=== PATIENT | male | born 1995 | race Caucasian/White ===

== ENCOUNTER 2023-07-02 11:53 | Outpatient (OUT) | payer BC, SELFPAY ==
[2023-07-02 12:32] LABS: Basophils Percent Auto 0.4 % (0.2-2.0); Eosinophils Absolute Auto 0.1 10^3/uL (0.0-0.7); Eosinophils Percent Auto 1.4 % (0.9-7.0); Hematocrit 46.2 % (42.0-54.0); Hemoglobin 15.5 g/dL (14.0-18.0); Immature Granulocytes Abs Auto 0.01 10^3/uL (0.00-0.03); Immature Granulocytes Pct Auto 0.2 % (0.0-0.5); Lymphocytes Absolute Auto 1.8 10^3/uL (1.2-3.8); Lymphocytes Percent Auto 37.1 % (20.5-60.0); Mean Corpuscular HGB Conc 33.5 g/dL (29.9-35.2); Mean Corpuscular Hemoglobin 30.8 pg (25.9-34.0); Mean Corpuscular Volume 91.8 fL (80.0-94.0); Mean Platelet Volume 10.7 fL (9.5-13.5); Monocytes Absolute Auto 0.6 10^3/uL (0.3-0.8); Monocytes Percent Auto 11.2 % (1.7-12.0); Neutrophils Absolute Auto 2.4 10^3/uL (1.4-6.5); Neutrophils Percent Auto 49.7 % (43.0-75.0); Platelet Count 252 10^3/uL (150-450); Red Blood Count 5.03 10^6/uL (4.70-6.10); Red Cell Distribution Width 12.4 % (11.0-15.0); White Blood Count 4.9 10^3/uL (4.0-11.0)
[2023-07-02 12:40] LABS: Bilirubin Urine NEGATIVE (NEGATIVE); Blood Urine NEGATIVE (NEGATIVE); Clarity Urine CLEAR (CLEAR); Color Urine YELLOW (YELLOW); Glucose Urine UA NEGATIVE (NEGATIVE); Ketones Urine NEGATIVE (NEGATIVE); Leukocyte Esterase Urine NEGATIVE (NEGATIVE); Nitrite Urine NEGATIVE (NEGATIVE); Protein Urine NEGATIVE (NEG/TRACE); Specific Gravity Urine 1.025 (1.005-1.025); Urobilinogen Urine 0.2 EU/dL (0.2-1.0)
[2023-07-02 12:43] LABS: Urine Microscopic Indicated NO
[2023-07-02 13:05] LABS: Alanine Aminotransferase 59 U/L (16-63); Albumin Globulin Ratio 1.1; Alkaline Phosphatase 56 U/L (46-116); Anion Gap 9.6; Aspartate Amino Transferase 28 U/L (15-37); BUN Creatinine Ratio 12.1; Bilirubin Total 0.6 mg/dL (0.2-1.0); Calcium 9.2 mg/dL (8.5-10.1); Carbon Dioxide 30.5 mmol/L (21.0-32.0); Chloride 105 mmol/L (98-107); Chol HDL Ratio 4.2; Cholesterol 294 mg/dL (<=200); Estimated GFR (African America >60 (>=60); Estimated GFR (Non-African Ame >60 (>=60); Globulin 3.5 g/dL; Glucose 91 mg/dL (74-106); HDL Cholesterol 70 mg/dL (40-60); Potassium 4.1 mmol/L (3.5-5.1); Sodium 141 mmol/L (136-145); TSH W/ REFLEX FT4 0.901 uIU/mL (0.358-3.740); Total Protein 7.5 g/dL (6.4-8.2); Triglycerides 47 mg/dL (<=150); VLDL CHOLESTEROL 9.4 mg/dL
== END 2023-07-02 11:54 | disposition home or self-care (01) ==
LOC: LAB 11:59
PROVIDERS: PCP Nurse Practitioner; Visit Provider Nurse Practitioner
DX: Z00.00 Encounter for general adult medical examination without abnormal findings (principal)
CPT/HCPCS: 36415; 80053; 80061; 81003; 84443; 85025

== ENCOUNTER 2023-08-27 10:16 | Outpatient (OUT) | payer SELFPAY ==
--- OUTSIDE RECORDS SUMMARY | 2023-08-27 10:39 | XMS_ITS | CCD ---
Author Organization [facility] Care Team Providers Care Spark Tester Name Role Phone SOUMYA COBB Attending Unavailable Sunil Osborne MD Primary Care Provider Jordyn CALL CENTER REPRESENTATIVE, Soumya Unavailable Medications Current Medications Medication Drug Class(es) Dates Sig (Normalized) Sig (Original) atorvastatin 20 mg oral tablet (1 source) HMG-CoA Reductase Inhibitor Start: 07-08-2023 End: 08-07-2023 take 1 tablet by mouth in the evening atorvastatin (Lipitor) 20 MG tablet Indications: Mixed hyperlipidemia (CMS/HCC) Take 1 tablet (20 mg) by mouth in the evening 30 tablet 1 07/08/2023 08/07/2023 Active Problems Problem Classification Problem Date Documented Da te Episodic/Chronic Disorders of lipid metabolism (2 sources) Mixed hyperlipidemia; Translations: [Mixed hyperlipidemia] Onset: 07-08-2023 07-08-2023 Chronic Other nutritional; endocrine; and metabolic disorders (6 sources) Overweight in adulthood with body mass index of 25 or more but less than 30; Translations: [Body mass index (BMI) 29.0-29.9, adult] Onset: 07-02-2023 07-02-2023 Episodic Residual codes; unclassified (6 sources) Chews tobacco ; Translations: [Tobacco use] Onset: 07-02-2023 07-02-2023 Episodic Results Test Name Value Interpretation Reference Range Facil ity [facility] UA (CLEAN/CATCH) MICROSC OPIC IF INDICATEon 07-02-2023 BILIRUBIN URINE Negative NEGATIVE [facility] BLOOD URINE Negative NEGATIVE [facility] Clarity (U) CLEAR CLEAR [facility] Color (U) YELLOW YELLOW [facility] GLUCOSE URINE UA Negative NEGATIVE mg/dL [facility] Ketones Ql (U) Negative NEGATIVE mg/dL [facility] Leukocyte esterase Test strip Ql (U) Negative NEGATIVE [facility] NITRITE URINE Negative NEGATIVE [facility] care pH (U) 6.0 [pH] 5.0 - 9.0 [facility] PROTEIN URINE Negative NEG/TRACE mg/dL [facility] SPECIFIC GRAVITY URINE 1.025 1.005 - 1.025 [facility] URINE MICROSCOPIC INDICATED NO [facility] UROBILINOGEN URINE 0.2 EU/dL 0.2 - 1.0 EU/dL [facility] Vital Signs Date Time Vital Sign Value Performing Clinician Faci lity 07-02-2023 10:57-0500 Body height 182.9 cm Soumya Cobb CALL CENTER REPRESENTATIVE Work Phone: [facility] 07-02-2023 10:57-0500 Body mass index (BMI) [Ratio] 29.86 kg/m2 Soumya Cobb CALL CENTER REPRESENTATIVE Work Phone: [facility] 07-02-2023 10:57-0500 Body temperature 97.5 [degF] Soumyayue Cobb CALL CENTER REPRESENTATIVE Work Phone: [facility] 07-02-2023 10:57-0500 Body weight 99.88 kg Soumya Jordyn CALL CENTER REPRESENTATIVE Work Phone: [facility] 07-02-2023 10:57-0500 Diastolic blood pressure 86 mm[Hg] Soumya Cobb CALL CENTER REPRESENTATIVE Work Phone: [facility] 07-02-2023 10:57-0500 Heart rate 73 /min Soumya Jordyn CALL CENTER REPRESENTATIVE Work Phone: [facility] 07-02-2023 10:57-0500 Respiratory rate 18 /min Soumyayue Cobb CALL CENTER REPRESENTATIVE Work Phone: [facility] 07-02-2023 10:57-0500 SaO2% (BldA) [Mass fraction] 99 % Soumya Cobb CALL CENTER REPRESENTATIVE Work Phone: [facility] 07-02-2023 10:57-0500 Systolic blood pressure 134 mm[Hg] Soumya Delacruzrosibel CALL CENTER REPRESENTATIVE Work Phone: [facility] Encounters Encounter Date Encounter Type Care Provider Facility Start: 07-08-2023 Refill Soumya Sureshpeter CALL CENTER REPRESENTATIVE Work Phone: [facility] Comment on above: Mixed hyperlipidemia (CMS/HCC) (Primary Dx) Start: 07-02-2023 Bamboo flowsheet Soumya Jordyn CALL CENTER REPRESENTATIVE Work Phone: [facility] Start: 07-02-2023 Bamboo flowsheet Soumya Jordyn CALL CENTER REPRESENTATIVE Work Phone: [facility] Start: 07-02-2023 [facility] Result Encounter Milagros turner Jordyn CALL CENTER REPRESENTATIVE Work Phone: [facility] External Department Unsolicited Start: 07-02-2023 End: 07-02-2023 ambulatory SOUMYA JORDYN Not Available Start: 07-02-2023 End: 07-02-2023 Initial preventive medicine new pt age 18-39yrs Soumya Jordyn CALL CENTER REPRESENTATIVE Work Phone: [facility] Comment on above: Wellness examination (Primary Dx); BMI 29.0-29.9,adult; Tobacco chew use Start: 07-02-2023 End: 07-02-2023 Patient encounter status Soumya Delacruzrosibel CALL CENTER REPRESENTATIVE Work Phone: [facility] Healthcare Work Phone: Procedures Date Procedure Procedure Detail Performing Clinician Start: 07-02-2023 [facility] UA (CLEAN/CATCH) MICROSCOPIC IF INDICATE Soumya Jordyn CALL CENTER REPRESENTATIVE Work Phone: Plan of Treatment Date Care Activity Detail Author Start: 11-23-2023 Influenza vaccination Influenza Vacc ine (#1) [facility] Comment on above: Postponed from 01/24 (Patient Refused) Start: 07-02-2023 End: 07-02-2024 CBC W Auto Differential panel - Blood CBC and differential Lab Routine Wellness examination Expected: 07/02/2023 (Approximate), Expires: 07/02/2024 [facility] Work Phone: Comment on above: Expected: 07/02/2023 (Approximate), Expires: 07/02/2024 Start: 07-02-2023 End: 07-02-2024 Comprehensive metabolic 2000 panel - Serum or Plasma Comprehensive metabolic panel Lab Routine Wellness examination Expected: 07/02/2023 (Approximate), Expires: 07/02/2024 [facility] Comment on above: Expected: 07/02/2023 (Approximate), Expires: 07/02/2024 Start: 07-02-2023 End: 07-02-2024 Lipid 1996 panel - Serum or Plasma Lipid panel Lab Routine Wellness examination Expected: 07/02/2023 (Approximate), Expires: 07/02/2024 [facility] Comment on above: Expected: 07/02/2023 (Approximate), Expires: 07/02/2024 Start: 07-02-2023 End: 07-02-2024 TSH W/REFLEX TO FT4 TSH W/REFLEX TO FT4 Lab Routine Wellness examination Expected: 07/02/2023 (Approximate), Expires: 07/02/2024 [facility] Comment on above: Expected: 07/02/2023 (Approximate), Expires: 07/02/2024 Start: 07-02-2023 End: 07-02-2024 Urinalysis complete panel - Urine Urinalysis with reflex microscopic (clean catch) Lab Routine Wellness examination Expected: 07/02/2023 (Approximate), Expires: 07/02/2024 [facility] Comment on above: Expected: 07/02/2023 (Approximate), Expires: 07/02/2024 Start: 07-02-2023 End: 07-02-2023 Patient encounter procedure 07/02/2023 11:00 AM EST Office Visit [facility] [address] [place] [id number] Soumya Cobb NP [address] [place] [id number] Arrived [facility] Comment on above: Arrived Payers Date Payer Category Payer Unknown [id number] 2021 Unknown BCBS BCBS xxxxxx [id number] 2021-Present [phone] [address] [place] [address] [id number] 1993 Unknown [id number] Social History Date Type Detail Facility Start: 06-23-2023 Tobacco smoking status NHIS Never sm oked tobacco [facility] Start: 06-23-2023 Tobacco use and exposure User of smokeless tobacco [facility] Start: 06-23-2023 End: 07-02-2023 Alcohol intake Current drinker of alcohol (finding) [facility] Start: 07-01-2023 End: 07-02-2023 Alcohol intake [facility] Start: 07-01-2023 End: 07-02-2023 Humiliation, Afraid, Rape, and Kick questionnaire [HARK] [facility] Within the last year , have you been afraid of your partner or ex-partner? No [facility] Do you belong to any clubs or organizations such as confucianist groups, unions, fraternal or athletic groups, or school groups? Yes [facility] Are you now , , , , never or living with a partner? [facility] How often to you hav e a drink containing alcohol? 4 or more times a week [facility] How many standard dr inks containing alcohol do you have on a typical day? 3 or 4 [facility] How often do you hav e 6 or more drinks on 1 occasion? Less than monthly [facility] How hard is it for y ou to pay for the very basics like food, housing, medical care, and heating Not hard at all [facility] Do you feel stress - tense, restless, nervous, or anxious, or unable to sleep at night because your mind is troubled all the time - these days [OSQ] To some extent [facility] (I/We) worried wheth er (my/our) food would run out before (I/we) got money to buy more. Never true [facility] Start: 06-23-2023 Tobacco Comment Daily [facility] Start: 06-23-2023 Alcohol Comment caffeine: 1 daily [facility] Start: 1995 Sex Assigned At Not on file [facility] History of Present illness Narrative 07-02-2023 Soumya Cobb NP - 07/02/2023 11:33 AM Jomar Cobb NP - 07/02/2023 11:32 AM NITZA WADE - 07/02/2023 11:00 AM Jomar Cobb NP - 07/02/2023 11:00 AM EST Note Date & Type Note Facility 07-02-2023 History of Presen t illness Narrative Associated Problem(s): Tobacco chew use Recommend regular oral examinations Also recommend quitting tobacco Associated Problem(s): Wellness examination Reviewed Ht/Wt/BMI Recommend eye exam yearly Recommend dental exams twice a year Balance work/leisure activities Exercises is recommended most days of the week (appropriate as chronic conditions allow) Follow up yearly and prn Havent been to the doctors since he was in middle school. Cholesterol issues runs in the family. Pt wondering about blood work. Images from the original note were not included. Noe Rowley is a 27 y.o. male presents with chief complaint of No chief complaint on file. HPI: Here to establish as a new patient No acute issues going on at present SUBJECTIVE: MEDICATIONS: No current outpatient medications ALLERGIES: No Known Allergies REVIEW OF SYMPTOMS: Review of Systems Constitutional: Negative. Negative for activity change, appetite change, chills, fatigue, fever and unexpected weight change. HENT: Negative for congestion, ear pain, nosebleeds, rhinorrhea, sinus pressure, sneezing, sore throat, trouble swallowing and voice change. Eyes: Negative. Negative for pain, discharge and visual disturbance. Respiratory: Negative. Negative for apnea, cough, chest tightness, shortness of breath and wheezing. Cardiovascular: Negative. Negative for chest pain, palpitations and leg swelling. Gastrointestinal: Negative. Negative for abdominal distention, abdominal pain, blood in stool, constipation, diarrhea, nausea and vomiting. Genitourinary: Negative. Negative for decreased urine volume, difficulty urinating, dysuria, flank pain and hematuria. Musculoskeletal: Negative. Negative for arthralgias, back pain, joint swelling and myalgias. Skin: Negative for color change, rash and wound. Neurological: Negative. Negative for dizziness, tremors, seizures, weakness, numbness and headaches. Psychiatric/Behavioral: Negative. Negative for agitation, decreased concentration, hallucinations, self-injury, sleep disturbance and suicidal ideas. The patient is not nervous/anxious. Hematological: Negative. Negative for adenopathy. Does not bruise/bleed easily. Endocrine: Negative. Negative for cold intolerance, heat intolerance, polydipsia, polyphagia and polyuria. Allergic/Immunologic: Negative. Negative for environmental allergies and food allergies. PAST MEDICAL HISTORY History reviewed. No pertinent past medical history. Past Surgical History: Procedure Laterality Date FINGER TENDON REPAIR Left pinky finger TONSILECTOMY, ADENOIDECTOMY, BILATERAL MYRINGOTOMY AND TUBES Bilateral family history is not on file. OBJECTIVE: Visit Vitals BP 134/86 (BP Location: Left arm, Patient Position: Sitting, BP Cuff Size: Adult long) Pulse 73 Temp 97.5 F (Temporal) Resp 18 Ht 6' Wt 220 lb 3.2 oz SpO2 99% BMI 29.86 kg/m Smoking Status Never BSA 2.25 m Physical Exam Vitals reviewed. Constitutional: Appearance: Normal appearance. HENT: Head: Normocephalic. Right Ear: Tympanic membrane, ear canal and external ear normal. Left Ear: Tympanic membrane, ear canal and external ear normal. Nose: Nose normal. Mouth/Throat: Mouth: Mucous membranes are moist. Pharynx: Oropharynx is clear. Eyes: Extraocular Movements: Extraocular movements intact. Conjunctiva/sclera: Conjunctivae normal. Neck: Vascular: No carotid bruit. Cardiovascular: Rate and Rhythm: Normal rate and regular rhythm. Pulses: Normal pulses. Heart sounds: Normal heart sounds. Pulmonary: Effort: Pulmonary effort is normal. Breath sounds: Normal breath sounds. Abdominal: General: Bowel sounds are normal. There is no distension. Palpations: Abdomen is soft. There is no mass. Tenderness: There is no abdominal tenderness. There is no guarding or rebound. Hernia: No hernia is present. Musculoskeletal: General: No swelling, tenderness, deformity or signs of injury. Cervical back: Neck supple. Right lower leg: No edema. Left lower leg: No edema. Skin: General: Skin is warm and dry. Capillary Refill: Capillary refill takes 2 to 3 seconds. Coloration: Skin is not pale. Findings: No erythema or rash. Neurological: General: No focal deficit present. Mental Status: He is alert. Psychiatric: Mood and Affect: Mood normal. Behavior: Behavior normal. Thought Content: Thought content normal. Judgment: Judgment normal. ASSESSMENT AND PLAN: No follow-ups on file. Problem List Items Addressed This Visit BMI 29.0-29.9,adult Wellness examination - Primary Reviewed Ht/Wt/BMI Recommend eye exam yearly Recommend dental exams twice a year Balance work/leisure activities Exercises is recommended most days of the week (appropriate as chronic conditions allow) Follow up yearly and prn Relevant Orders CBC and differential Comprehensive metabolic panel Lipid panel TSH W/REFLEX TO FT4 Urinalysis with reflex microscopic (clean catch) Tobacco chew use Recommend regular oral examinations Also recommend quitting tobacco documented in this encounter [facility] Evaluation note Note Date & Type Note Facility Evaluation note Diagnosis Wellness examination- Primary BMI 29.0-29.9,adult Tobacco chew use documented in this encounter [facility] Evaluation note Note Date & Type Note Facility Evaluation note Diagnosis Mixed hyperlipidemia (CMS/HCC)- Primary Mixed hyperlipidemia documented in this encounter [facility] Summary Purpose Family History No Family History Records Found Advance Directives No Advanced Directives Records Found Additional Source Comments (unrecognized sect ion and content) No Status Records Found INFORMATION SOURCE (unrecogn ized section and content) DATE CREATED AUTHOR 07/03/2023 [facility] Specialists [facility] Care Teams (unrecognized sec tion and content) Spark Tester Relationship Specialty Start Date End Date Sunil Osborne MD [address] [place] [phone] PCP - General Family Medicine 07/02/23 Soumya Cobb NP [address] [place] [phone] Nurse Practitioner Family Medicine 07/02/23 Spark Tester Relationship Specialty Start Date End Date Sunil Osborne MD [address] [place] [phone] PCP - General Family Medicine 07/02/23 Soumya Cobb NP [address] [place] [phone] Nurse Practitioner Family Medicine 07/02/23 Spark Tester Relationship Specialty Start Date End Date Suinl Osborne MD [address] [place] [phone] PCP - General Family Medicine 07/02/23 Soumya Cobb NP [address] [place] [phone] Nurse Practitioner Family Medicine 07/02/23 Spark Tester Relationship Specialty Start Date End Date Sunil Osborne MD [address] [place] [phone] PCP - General Family Medicine 07/02/23 Soumya Cobb NP [address] [place] [phone] Nurse Practitioner Family Medicine 07/02/23 FOR RECORDS PERTAINING TO PATIENTS WHO ARE OR HAVE BEEN ENROLLED IN A CHEMICAL DEPENDENCY/SUBSTANCEABUSE PROGRAM, SOME INFORMATION MAY BE OMITTED. This clinical summary was aggregated from multiple sources. Caution should be exercised in using it in the provision of clinical care. This summary normalizes information from multiple sources, and as a consequence, information in this document may materially change the coding, format and clinical context of patient data. In addition, data may be omitted in some cases. CLINICAL DECISIONS SHOULD BE BASED ON THE PRIMARY CLINICAL RECORDS. [facility] [employer] [facility] provides no warranty or guarantee of the accuracy or completeness of information in this document.
[2023-08-27 13:00] LABS: Alanine Aminotransferase 58 U/L (16-63); Aspartate Amino Transferase 24 U/L (15-37); Chol HDL Ratio 2.4; Cholesterol 189 mg/dL (<=200); HDL Cholesterol 78 mg/dL (40-60); Triglycerides 36 mg/dL (<=150); VLDL CHOLESTEROL 7.2 mg/dL
== END 2023-08-27 10:17 | disposition home or self-care (01) ==
LOC: LAB 10:18
PROVIDERS: PCP Nurse Practitioner; Visit Provider Nurse Practitioner
DX: E78.2 Mixed hyperlipidemia (principal)
CPT/HCPCS: 36415; 80061; 84450; 84460